=== PATIENT | male | born 1995 | race Caucasian/White ===

== ENCOUNTER 2021-01-03 16:59 | Emergency (ER) | payer MEDICARE ==
[~2021-01-03] VITALS: Ht 185.4 cm; Wt 81.7 kg
[2021-01-03 18:11] VITALS: BP 130/70
== END 2021-01-03 18:12 | disposition home or self-care (01) ==
LOC: M.ERS 16:59
DX: R50.9 Fever, unspecified (principal); Z20.822 Contact with and (suspected) exposure to COVID-19